=== PATIENT | male | born 1990 | race American Indian/Alaskan Native ===

== ENCOUNTER 2016-12-04 20:18 | Emergency (ER) | payer SELFPAY ==
[2016-12-04 21:26] VITALS: BP 123/84
[2016-12-04] MEDS ORDERED: XYLOCAINE 1% MPF 5 mL INFILTRATI ONE (22:43)
[2016-12-04] MEDS ORDERED: ROCEPHIN IM ONE (22:43)
--- NOTE | 2016-12-04 22:43 | Emergency Department Report ---
ED Male HPI - General Chief complaint: Urogenital-Male Stated complaint: STD/PAIN WITH URINATION Time Seen by Provider: 12/04/16 22:25 Source: patient Mode of arrival: Ambulatory Limitations: No Limitations - History of Present Illness Initial comments: 26-year-old male presents with complaint of approximately 2 weeks of intermittent penile discharge with dysuria. Patient denies fevers chills or abdominal pain. States he has been sexually active in the last 6 months with more than one partner and protected. Denies any fever or chills denies any testicular pain denies any rash on penis or genitourinary region. States he has white to yellowish intermittent penile discharge with a burning sensation. Slightly worse with urination, denies any increased urinary frequency or urgency. MD Complaint: penile discharge, dysuria Onset/Timin -: week(s) Location: penis Worsens with: urination - Related Data Previous Rx's Medication Instructions Recorded Last Taken Type Ciprofloxacin HCl [Ciprofloxacin 500 mg PO Q12HR #14 tab 12/04/16 Unknown Rx TAB] Allergies Allergy/AdvReac Type Severity Reaction Status Date / Time No Known Allergies Allergy Verified 12/04/16 21:22 ED Review of Systems ROS: Stated complaint: STD/PAIN WITH URINATION Other details as noted in HPI Constitutional: denies: chills, fever Eyes: denies: eye pain, eye discharge, vision change ENT: denies: ear pain, throat pain Respiratory: denies: cough, shortness of breath, wheezing Cardiovascular: denies: chest pain, palpitations Endocrine: no symptoms reported Gastrointestinal: denies: abdominal pain, nausea, diarrhea Genitourinary: discharge. denies: urgency, dysuria Musculoskeletal: denies: back pain, joint swelling, arthralgia Skin: denies: rash, lesions Neurological: denies: headache, weakness, paresthesias Psychiatric: denies: anxiety, depression Hematological/Lymphatic: denies: easy bleeding, easy bruising ED Past Medical Hx - Past Medical History Previous Medical History?: No - Surgical History Past Surgical History?: No - Social History Smoking Status: Never Smoker Substance Use Type: None - Medications Home Medications: Home Medications Medication Instructions Recorded Confirmed Last Taken Type Ciprofloxacin HCl [Ciprofloxacin 500 mg PO Q12HR #14 tab 12/04/16 Unknown Rx TAB] ED Physical Exam - General Limitations: No Limitations General appearance: alert, in no apparent distress - Head Head exam: Present: atraumatic, normocephalic - Eye Eye exam: Present: normal appearance, PERRL, EOMI - ENT ENT exam: Present: mucous membranes moist - Neck Neck exam: Present: normal inspection - Respiratory Respiratory exam: Present: normal lung sounds bilaterally. Absent: respiratory distress - Cardiovascular Cardiovascular Exam: Present: regular rate, normal rhythm. Absent: systolic murmur, diastolic murmur, rubs, gallop - GI/Abdominal GI/Abdominal exam: Present: soft, normal bowel sounds - Rectal Rectal exam: Present: deferred - exam: Present: urethral discharge (whitish yellowish urethral discharge) - Extremities Exam Extremities exam: Present: normal inspection - Back Exam Back exam: Present: normal inspection - Neurological Exam Neurological exam: Present: alert, oriented X3 - Psychiatric Psychiatric exam: Present: normal affect, normal mood - Skin Skin exam: Present: warm, dry, intact, normal color. Absent: rash ED Course Vital Signs 12/04/16 21:22 Temperature 98.7 F Pulse Rate 55 L Respiratory 20 Rate Blood Pressure 123/84 O2 Sat by Pulse 99 Oximetry ED Medical Decision Making - Medical Decision Making A/P: Urethritis, possible UTI 1-patient referred to health centers, primary care 2-urinalysis urine chlamydia and gonorrhea and urine cultures sent. Patient states he was seen at the [facility] ED 2 weeks ago however there is no documentation on [facility] of this. 3-I will treat patient empirically for both urethritis as patient has urethral discharge and also for possible UTI. The lab is experiencing issues resulting urinalysis at this time so I willl treat empirically. Critical care attestation.: If time is entered above; I have spent that time in minutes in the direct care of this critically ill patient, excluding procedure time. ED Disposition Clinical Impression: Urethritis Disposition: DC-01 TO HOME OR SELFCARE Is pt being admited?: No Does the pt Need Aspirin: No Condition: Stable Instructions: Nonspecific Urethritis in Men (ED) Additional Instructions: [email or web address] Prescriptions: Ciprofloxacin HCl [Ciprofloxacin TAB] 500 mg PO Q12HR #14 tab Referrals: [facility] [Provider Group] - 3[facility]5 Days [facility]Outside[facility] - 3-5 Days [facility] [Outside] - [facility] - 3-5 Days Forms: STI Treatment and Prevention, Work/School Release Form(ED) Time of Disposition: 23:20
[2016-12-04] MEDS ORDERED: ZITHROMAX PO ONE (22:44)
[2016-12-05 00:15] LABS: Bacteria,Urine 1+ /HPF (Negative); Bilirubin,Urine NEG (Negative); Blood,Urine NEG (Negative); Ketones,Urine NEG (Negative); Leukocyte Esterase,Urine LG (Negative); Mucus,Urine FEW /HPF; Nitrite,Urine NEG (Negative); Protein,Urine <15 mg/dL mg/dL (Negative); Urobilinogen,Urine < 2.0 mg/dL (<2.0)
== END 2016-12-04 23:20 | disposition home or self-care (01) ==
LOC: ED 20:18
DX: N34.2 Other urethritis (principal)
CPT/HCPCS: 81001; 87086; 87591; 96372; 99283; J0696

== ENCOUNTER 2018-04-20 16:21 | Emergency (ER) | payer SELFPAY ==
[2018-04-20 16:44] VITALS: BP 122/74
--- NOTE | 2018-04-20 21:09 | Emergency Department Report ---
ED Male HPI - General Chief complaint: Urogenital-Male Stated complaint: BURN WHEN USING BATHROOM Time Seen by Provider: 04/20/18 19:46 Source: patient Mode of arrival: Ambulatory Limitations: No Limitations - History of Present Illness Initial comments: 27-year-old male to emergency department complaining of penile irritation and burning with urination, which she thinks is secondary to an STD. Patient states she's had the same problems a few times earlier this year is he's had a new sexual partner. Last year, which she does engage in only unprotective sex and reports being very active. States he has been educated on sexual transmitted diseases with his last visit but does not know why he continues to not utilize condoms and thinks he may have come in contact with chlamydia again. There is no penile discharge, but there is burning and postvoid dribbling. There is no urinary hesitation. No urinary retention. MD Complaint: dysuria Location: penis Radiation: none Severity: mild Quality: burning Consistency: constant Improves with: none Worsens with: none new medication dysuria - Related Data Sexually active: Yes Previous Rx's Medication Instructions Recorded Last Taken Type Ciprofloxacin HCl [Ciprofloxacin 500 mg PO Q12HR #14 tab 12/04/16 Unknown Rx TAB] Cefixime [Suprax] 400 mg PO ONCE #1 capsule 04/20/18 Unknown Rx Doxycycline [Vibramycin CAP] 100 mg PO BID #28 capsule 04/20/18 Unknown Rx metroNIDAZOLE [Flagyl] 2,000 mg PO ONCE #4 tablet 04/20/18 Unknown Rx Allergies Allergy/AdvReac Type Severity Reaction Status Date / Time No Known Allergies Allergy Verified 12/04/16 21:22 ED Review of Systems ROS: Stated complaint: BURN WHEN USING BATHROOM Other details as noted in HPI Constitutional: denies: chills, fever Eyes: denies: eye pain, eye discharge, vision change ENT: denies: ear pain, throat pain Respiratory: denies: cough, shortness of breath, wheezing Cardiovascular: denies: chest pain, palpitations Endocrine: no symptoms reported Gastrointestinal: denies: abdominal pain, nausea, diarrhea Genitourinary: dysuria, frequency. denies: urgency Musculoskeletal: denies: back pain, joint swelling, arthralgia Skin: denies: rash, lesions Neurological: denies: headache, weakness, paresthesias Psychiatric: denies: anxiety, depression Hematological/Lymphatic: denies: easy bleeding, easy bruising ED Past Medical Hx - Past Medical History Previous Medical History?: No - Surgical History Past Surgical History?: No - Social History Smoking Status: Never Smoker Substance Use Type: None - Medications Home Medications: Home Medications Medication Instructions Recorded Confirmed Last Taken Type Ciprofloxacin HCl [Ciprofloxacin 500 mg PO Q12HR #14 tab 12/04/16 Unknown Rx TAB] Cefixime [Suprax] 400 mg PO ONCE #1 capsule 04/20/18 Unknown Rx Doxycycline [Vibramycin CAP] 100 mg PO BID #28 capsule 04/20/18 Unknown Rx metroNIDAZOLE [Flagyl] 2,000 mg PO ONCE #4 tablet 04/20/18 Unknown Rx ED Physical Exam - General Limitations: No Limitations General appearance: alert, in no apparent distress - Head Head exam: Present: atraumatic, normocephalic - Eye Eye exam: Present: normal appearance, PERRL - ENT ENT exam: Present: mucous membranes moist - Neck Neck exam: Present: normal inspection - Respiratory Respiratory exam: Present: normal lung sounds bilaterally. Absent: respiratory distress, wheezes, rhonchi - Cardiovascular Cardiovascular Exam: Present: regular rate, normal rhythm. Absent: bradycardia, systolic murmur, diastolic murmur, rubs, gallop - GI/Abdominal GI/Abdominal exam: Present: soft, normal bowel sounds - Rectal Rectal exam: Present: deferred - Extremities Exam Extremities exam: Present: normal inspection, normal capillary refill - Back Exam Back exam: Present: normal inspection - Neurological Exam Neurological exam: Present: alert, oriented X3 - Psychiatric Psychiatric exam: Present: normal affect, normal mood - Skin Skin exam: Present: warm, dry, intact, normal color. Absent: rash ED Course Vital Signs 04/20/18 16:40 Temperature 99.4 F Pulse Rate 79 Respiratory 16 Rate Blood Pressure 122/74 O2 Sat by Pulse 98 Oximetry Critical care attestation.: If time is entered above; I have spent that time in minutes in the direct care of this critically ill patient, excluding procedure time. ED Disposition Clinical Impression: Possible exposure to STD, Dysuria Disposition: MED SCREENING EXAM-LEFT Is pt being admited?: No Does the pt Need Aspirin: No Condition: Stable Instructions: Sexually Transmitted Diseases (ED) Referrals: DOC,ED, [Primary Care Provider] - 3-5 Days [facility] [Referring] - 3-5 Days [facility] [Outside] - 3-5 Days Forms: AMA Form
[2018-04-20 22:39] LABS: Bilirubin,Urine NEG (Negative); Blood,Urine NEG (Negative); Color,Urine Yellow (Yellow); Mucus,Urine FEW /HPF; Protein,Urine <15 mg/dL mg/dL (Negative); Urobilinogen,Urine < 2.0 mg/dL (<2.0)
== END 2018-04-20 21:15 | disposition left against medical advice (07) ==
LOC: ED 16:21
DX: Z20.2 Contact with and (suspected) exposure to infections with a predominantly sexual mode of transmission (principal)
CPT/HCPCS: 81001; 99282

== ENCOUNTER 2019-03-15 04:24 | Emergency (ER) | payer SELFPAY ==
[2019-03-15 05:06] VITALS: BP 145/97
--- NOTE | 2019-03-15 07:44 | Emergency Department Report ---
ED Dysuria HPI - HPI Chief Complaint: Urogenital-Male Stated Complaint: DIFFICULTY URINATING Time Seen by Provider: 03/15/19 07:23 Severity: Mild Symptoms: Dysuria: Yes, Frequency: No, Suprapubic Pain: No, Flank Pain: No, Fever: No, Hematuria: No, Abdominal Pain: No, Previous UTI's: No Other History: Pt concernced for STI. Declined referral/ [facility]. No med emergency ED Review of Systems ROS: Stated complaint: DIFFICULTY URINATING Other details as noted in HPI Comment: All other systems reviewed and negative ED Past Medical Hx - Past Medical History Previous Medical History?: No - Surgical History Past Surgical History?: No - Social History Smoking Status: Never Smoker Substance Use Type: None - Medications Home Medications: Home Medications Medication Instructions Recorded Confirmed Last Taken Type Ciprofloxacin HCl [Ciprofloxacin 500 mg PO Q12HR #14 tab 12/04/16 Unknown Rx TAB] Cefixime [Suprax] 400 mg PO ONCE #1 capsule 04/20/18 Unknown Rx DOXYCYCLINE Hyclate [Vibramycin 100 mg PO BID #28 capsule 04/20/18 Unknown Rx CAP] metroNIDAZOLE [Flagyl] 2,000 mg PO ONCE #4 tablet 04/20/18 Unknown Rx Dysuria Exam - Exam General: Vital signs noted. No distress. Alert and acting appropriately. Exam: Yes Moist Mucous Membranes, No CVA Tenderness, No Abdominal Tenderness, No Rigidity or Guarding ED Course Vital Signs 03/15/19 05:02 Temperature 97.8 F Pulse Rate 57 L Respiratory 18 Rate Blood Pressure 145/97 O2 Sat by Pulse 98 Oximetry - Reevaluation(s) Reevaluation #1: 03/15/19 08:39 declined to pay copay ED Medical Decision Making - Medical Decision Making no urine sent to lab prior to pt leaving Critical care attestation.: If time is entered above; I have spent that time in minutes in the direct care of this critically ill patient, excluding procedure time. ED Disposition Clinical Impression: Dysuria Disposition: ELOPED Is pt being admited?: No Does the pt Need Aspirin: No Condition: Stable Additional Instructions: CALL ER IN 1 WEEK FOR TEST RESULTS ONCE YOU GET RESULTS THEY WILL TELL YOU WHAT TREATMENT OPTIONS ARE SAFE SEX Referrals: [facility] [Outside] - 3-5 Days Time of Disposition: 07:42
== END 2019-03-15 08:41 | disposition left against medical advice (07) ==
LOC: ED 04:24
DX: R30.0 Dysuria (principal); Z53.21 Procedure and treatment not carried out due to patient leaving prior to being seen by health care provider